=== PATIENT | male | born 1960 | race African-American/Black ===

== ENCOUNTER 2017-04-28 19:46 | Emergency (ER) | payer OTHER ==
[~2017-04-28] VITALS: Ht 177.8 cm; Wt 93.0 kg
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
== END 2017-04-28 22:28 | disposition home or self-care (01) ==
LOC: CED 19:46 → CFTX 19:46
DX: S16.1XXA Strain of muscle, fascia and tendon at neck level, initial encounter (principal); S39.012A Strain of muscle, fascia and tendon of lower back, initial encounter; S80.02XA Contusion of left knee, initial encounter; I10 Essential (primary) hypertension; F17.210 Nicotine dependence, cigarettes, uncomplicated; V43.52XA Car driver injured in collision with other type car in traffic accident, initial encounter; Y92.410 Unspecified street and highway as the place of occurrence of the external cause
CPT/HCPCS: 29530; 72040; 72100; 73562; 96372; 99284; J1885